=== PATIENT | female | born 1960 | race Caucasian/White ===

== ENCOUNTER 2018-11-21 10:37 | Inpatient (IN) | payer BC ==
[~2018-11-21] VITALS: Ht 175.3 cm; Wt 48.3 kg
[2018-11-21 11:46] LABS: BASOPHILS ABSOLUTE AUTO 0.04 K/mm3 (0.00-0.23); BASOPHILS PERCENT AUTO 0 % (0-2); EOSINOPHILS ABSOLUTE AUTO 0.61 K/mm3 (0.00-0.68); EOSINOPHILS PERCENT AUTO 5 % (0-6); Hematocrit 47.1 % (33.0-51.0); Hemoglobin 15.3 g/dL (11.5-16.0); IMMATURE GRAN ABSOLUTE AUTO 0.02 K/mm3 (0.00-0.10); IMMATURE GRAN PERCENT AUTO 0 % (0-1); LYMPHOCYTES ABSOLUTE AUTO 1.23 K/mm3 (0.84-5.20); LYMPHOCYTES PERCENT AUTO 11 % (21-46); MONOCYTES ABSOLUTE AUTO 0.42 K/mm3 (0.16-1.47); MONOCYTES PERCENT AUTO 4 % (4-13); Mean Corpuscular HGB 30.6 pg (26.0-34.0); Mean Corpuscular HGB Conc 32.5 g/dL (31.5-36.5); Mean Corpuscular Volume 94 fL (80-100); Mean Platelet Volume 9.1 fL (9.1-12.4); NEUTROPHILS ABSOLUTE AUTO 8.94 K/mm3 (1.96-9.15); NEUTROPHILS PERCENT AUTO 79 % (41-73); Platelet Count 374 K/mm3 (150-400); RDW Coefficient Variation 14.7 % (11.7-14.2); RDW Standard Deviation 51.8 fL (35.1-46.3); White Blood Cell Count 11.26 K/mm3 (4.00-11.30)
[2018-11-21 11:52] LABS: Source, Urine Clean Catch
[2018-11-21 11:59] LABS: Appearance, Urine Clear (Clear); Bilirubin, Urine Neg (Neg); Blood, Urine 4+ (Neg); Color, Urine Yellow (P-Yellow); Glucose Qualitative, Urine Neg (Neg); Ketones, Urine Neg (Neg); Leukocyte Esterase, Urine 1+ (Neg); Nitrite, Urine Neg (Neg); Protein, Urine 2+ (Neg); Specific Gravity, Urine 1.015 (1.003-1.022); Urobilinogen, Urine NORM (Normal)
[2018-11-21 12:10] LABS: Alanine Aminotransfer (ALT/SGP 19 U/L (12-78); Alk Phos 88 U/L (50-136); Anion Gap 5 mmol/L (6-16); Aspartate Aminotrans (AST/SGOT 13 U/L (12-37); Bilirubin, Total 0.4 mg/dL (0.1-1.0); Blood Urea Nitrogen 15 mg/dL (8-24); Bun/Creatinine Ratio 20.4 (12.0-20.0); CO2, Blood 29 mmol/L (21-32); Calcium, Blood 10.9 mg/dL (8.5-10.1); Chloride, Blood 104 mmol/L (98-108); Creatinine, Blood 0.74 mg/dL (0.40-1.00); Globulin, Blood 4.1 g/dL (2.2-4.0); Glomerular Filtration Rate >60 (60-); Glucose, Blood 90 mg/dL (70-99); Potassium, Blood 3.6 mmol/L (3.5-5.5); Sodium, Blood 138 mmol/L (136-145); Total Protein, Blood 8.1 g/dL (6.4-8.2)
[2018-11-21 12:25] LABS: Bacteria Mod /hpf; Squamous Epithelial Cells Few /hpf (Few)
--- NOTE | 2018-11-21 14:34 | NUR ---
PT INTO SDS VIA GURNEY FROM ER. History, Chart, Medications and Allergies reviewed before start of procedure.Patient confirms NPO status and agrees with scheduled surgery.SENCOND IV PLACED PER DR. GONZALEZ.
[2018-11-21] MEDS ORDERED: ESCI20 PO (14:42)
[2018-11-21] MEDS ORDERED: BUDESONIDE EC3 MG PO (14:43)
[2018-11-21] MEDS ORDERED: LOSA50 PO (14:44)
[2018-11-22 05:03] LABS: Hematocrit 38.8 % (33.0-51.0); Hemoglobin 12.6 g/dL (11.5-16.0); Mean Corpuscular HGB 30.1 pg (26.0-34.0); Mean Corpuscular HGB Conc 32.5 g/dL (31.5-36.5); Mean Corpuscular Volume 93 fL (80-100); Mean Platelet Volume 8.9 fL (9.1-12.4); Platelet Count 250 K/mm3 (150-400); RDW Coefficient Variation 14.7 % (11.7-14.2); RDW Standard Deviation 50.1 fL (35.1-46.3); Red Blood Cell Count 4.19 M/mm3 (3.80-5.20); White Blood Cell Count 11.23 K/mm3 (4.00-11.30)
[2018-11-22 05:19] LABS: Anion Gap 4 mmol/L (6-16); Blood Urea Nitrogen 17 mg/dL (8-24); Bun/Creatinine Ratio 23.2 (12.0-20.0); CO2, Blood 30 mmol/L (21-32); Calcium, Blood 9.1 mg/dL (8.5-10.1); Chloride, Blood 102 mmol/L (98-108); Creatinine, Blood 0.73 mg/dL (0.40-1.00); Glomerular Filtration Rate >60 (60-); Glucose, Blood 102 mg/dL (70-99); Sodium, Blood 136 mmol/L (136-145)
[2018-11-22 05:26] LABS: BAND PERCENT MAN 13 % (0-8); BASOPHILS ABSOLUTE MAN 0.11 K/mm3 (0.00-0.23); BASOPHILS PERCENT MAN 1 % (0-2); EOSINOPHILS PERCENT MAN 0 % (0-6); LYMPHOCYTES ABSOLUTE MAN 0.22 K/mm3 (0.84-5.20); LYMPHOCYTES PERCENT MAN 2 % (21-46); METAMYELOCYTE ABSOLUTE MAN 0.11 K/mm3 (0.00-0.00); METAMYELOCYTE PERCENT MAN 1 % (0-0); MONOCYTES ABSOLUTE MAN 0.33 K/mm3 (0.16-1.47); MONOCYTES PERCENT MAN 3 % (4-13); NEUTROPHILS ABSOLUTE MAN 10.44 K/mm3 (1.96-9.15); SEG NEUTROPHILS PERCENT MAN 80 % (41-73); TOTAL CELLS COUNTED 100
--- NOTE | 2018-11-22 08:07 | NUR ---
SUMMARY POD #1 FENTANYL CONSULTING NURSE STARTED THIS AM FOR PAIN CONTROL. PT HAS NOT BEEN ABLE SLEEP TO DUE TO PAIN. PT IS NPO. PROTONIX DRIP INFUSING. DRSG'S REMAIN C/D/I. VOIDING WNL. CALL LIGHT IN REACH
--- NOTE | 2018-11-22 15:19 | NUR ---
PT HYPERTENSIVE. CALLED DR GAYTAN AND OBTAINED ORDERS FOR PT'S HOME DOSE OF [place]
--- NOTE | 2018-11-22 17:19 | NUR ---
SUMMARY NO ACUTE CHANGES T/O SHIFT. PT VERY PAINFUL W/MOVEMENT. USING TAX DIRECTOR, STATES DOES HELP MAKE PAIN TOLERABLE. GETS UP INDEPENDENTLY TO RESTROOM. DRESSING TO MIDLINE ABD HAS SCANT AMT BROWNISH DRAINAGE. HYPERTENSIVE. CALLED DR AND OBTAINED ORDERS FOR HOME DOSE OF [place]. ADMINISTERED PER ORDERS. PT PLEASANT AND COOPERATIVE. CALL LIGHT IN REACH.
[2018-11-22] MEDS ORDERED: NIFE30ER PO (18:11)
[2018-11-22] MEDS ORDERED: Alendronate Sod10 MG PO (18:12)
[2018-11-23 05:13] LABS: BASOPHILS ABSOLUTE AUTO 0.02 K/mm3 (0.00-0.23); BASOPHILS PERCENT AUTO 0 % (0-2); EOSINOPHILS ABSOLUTE AUTO 0.19 K/mm3 (0.00-0.68); EOSINOPHILS PERCENT AUTO 2 % (0-6); Hematocrit 36.9 % (33.0-51.0); Hemoglobin 11.9 g/dL (11.5-16.0); IMMATURE GRAN ABSOLUTE AUTO 0.05 K/mm3 (0.00-0.10); IMMATURE GRAN PERCENT AUTO 0 % (0-1); LYMPHOCYTES ABSOLUTE AUTO 0.71 K/mm3 (0.84-5.20); LYMPHOCYTES PERCENT AUTO 6 % (21-46); MONOCYTES ABSOLUTE AUTO 0.53 K/mm3 (0.16-1.47); MONOCYTES PERCENT AUTO 5 % (4-13); Mean Corpuscular HGB 30.6 pg (26.0-34.0); Mean Corpuscular HGB Conc 32.2 g/dL (31.5-36.5); Mean Corpuscular Volume 95 fL (80-100); Mean Platelet Volume 9.1 fL (9.1-12.4); NEUTROPHILS ABSOLUTE AUTO 10.13 K/mm3 (1.96-9.15); NEUTROPHILS PERCENT AUTO 87 % (41-73); Platelet Count 261 K/mm3 (150-400); RDW Coefficient Variation 14.9 % (11.7-14.2); RDW Standard Deviation 52.7 fL (35.1-46.3); Red Blood Cell Count 3.89 M/mm3 (3.80-5.20); White Blood Cell Count 11.63 K/mm3 (4.00-11.30)
[2018-11-23 05:38] LABS: Anion Gap 5 mmol/L (6-16); Blood Urea Nitrogen 14 mg/dL (8-24); CO2, Blood 28 mmol/L (21-32); Calcium, Blood 8.6 mg/dL (8.5-10.1); Chloride, Blood 103 mmol/L (98-108); Creatinine, Blood 0.61 mg/dL (0.40-1.00); Glomerular Filtration Rate >60 (60-); Glucose, Blood 85 mg/dL (70-99); Potassium, Blood 3.8 mmol/L (3.5-5.5); Sodium, Blood 136 mmol/L (136-145)
--- NOTE | 2018-11-23 06:51 | NUR ---
LYING IN SEMI FOWLERS WITH EYES CLOSED AND TV ON. HAS HAD A GOOD NIGHT, NO REQUESTS FOR PAIN MEDS THIS SHIFT. RESTED WITH EASE, HAS BEEN PLEASANT, AND COOPERATIVE WITH ALL COMMANDS AND REQUESTS. DENIES FURTHER NEEDS AT THIS TIME. SAFETY MEAURES IN PLACE. WILL GIVE HAND OFF FOR ONCOMING SHIFT USING SBAR.
--- NOTE | 2018-11-23 12:18 | NUR ---
FENTANYL CAKE WRAPPER OBTAINED ORDER TO INCREASE DEMAND DOSE OF CAKE WRAPPER TO 12 MCG Q 10 MIN PRN. PT REPORT PAIN IMPROVED AND DECLINED THE INCREASE. CAKE WRAPPER RUNNING AT 10 MCG PER MIN DEMAND DOSE.
--- NOTE | 2018-11-23 13:07 | NUR ---
FENTANYL POULTRY HANGER INCREASED POULTRY HANGER TO 12MCG DEMAND DOSE PER ORDERS PER PT REQUEST.
--- NOTE | 2018-11-23 18:30 | NUR ---
SHIFT SUMMARY PT HAD UGI THIS AM. ABD FIRM AND DISTENDED WITH SLIGHT NAUSEA AFTER PROCEDURE. PT REFUSED NG TUBE AT THIS TIME. AMBULATED IN FREED AND UP TO BATHROOM WITH NO DIFFICULTY. USING ANALYTICAL RESEARCH PROGRAM MANAGER FOR PAIN CONTROL, PLEASANT AND COOPERATIVE.
--- NOTE | 2018-11-24 06:56 | NUR ---
SUMMARY PT ABD MODERATELY DISTENDE WITH HYPO BTS AND NAUSEA/ SPITTING UP OF BILE. PT INITIALLY REFUSED NG BUT THEN ALLOWED NG PLACEMENT. NG WENT DOWN SMOOTHLY HOWEVER, PT ONLY ALLOWED 100 ML REMOVED BEFORE DEMAND OF NG REMOVAL STATING SHE JUST COULD NOT TOLERATE IT.UNIT SUPERVISER INÉS WHO PLACED NG DISCUSSED FULLY WITH PT BENEFITS OF LEAVING TUBE IN PLACE FOR DECOMPRESSION. PT STILL DEMANDED REMOVAL. NG WAS IMMEDIATELY REMOVED AND PT CONT SPITTING UP BILE. OCC PT EMESIS ENOUGH FOR MEASUREMENT. OTHERWISE SPITTING INTO TISSUE. ENC USE OF DOPING SUPERVISOR FOR DISCOMFORT.ALSO USING ZOFRAN FOR NAUSEA. PT TACHYCARDIC AND SIGMIFICANTLY HYPERTENSIVE. WE NOTIFIED DR RADHA GAYLE WHO GAVE ORDERS FOR ORN SL PROCARDIA WHICH WAS STARTED. HAVE HAD 2 BPS THAT WERE ACTUALLY IMPROVED TONIGHT. LAST HEART RATE WAS 118. WILL ASK DAY RN TO FOLLOW UP AND POSSIBLY REQUEST CX WITH MED/HOSPITALIST FOR CONTROL OF HTN AND TACYCARDIA. PT WITH ANOTHER 150 ML BILE EMESIS THIS AM. PT CONT TO REFUSE NG FURTHER. I AGAIN DISCUSSED BENEFITS WITH PT AND POSSIBLE ILEUS.PT REPORTS WHE DOES NOT INTEND TO CHANGE HER MIND. SEE UGI 11/23.
[2018-11-24 12:32] LABS: BASOPHILS ABSOLUTE AUTO 0.02 K/mm3 (0.00-0.23); BASOPHILS PERCENT AUTO 0 % (0-2); EOSINOPHILS ABSOLUTE AUTO 0.15 K/mm3 (0.00-0.68); EOSINOPHILS PERCENT AUTO 1 % (0-6); Hematocrit 36.9 % (33.0-51.0); IMMATURE GRAN ABSOLUTE AUTO 0.05 K/mm3 (0.00-0.10); IMMATURE GRAN PERCENT AUTO 0 % (0-1); LYMPHOCYTES ABSOLUTE AUTO 0.77 K/mm3 (0.84-5.20); LYMPHOCYTES PERCENT AUTO 6 % (21-46); MONOCYTES ABSOLUTE AUTO 0.47 K/mm3 (0.16-1.47); MONOCYTES PERCENT AUTO 4 % (4-13); Mean Corpuscular HGB 30.1 pg (26.0-34.0); Mean Corpuscular HGB Conc 32.5 g/dL (31.5-36.5); Mean Corpuscular Volume 93 fL (80-100); Mean Platelet Volume 8.9 fL (9.1-12.4); NEUTROPHILS ABSOLUTE AUTO 10.84 K/mm3 (1.96-9.15); NEUTROPHILS PERCENT AUTO 88 % (41-73); Platelet Count 308 K/mm3 (150-400); RDW Coefficient Variation 14.6 % (11.7-14.2); RDW Standard Deviation 49.5 fL (35.1-46.3); Red Blood Cell Count 3.99 M/mm3 (3.80-5.20)
[2018-11-24 12:49] LABS: Anion Gap 8 mmol/L (6-16); Blood Urea Nitrogen 17 mg/dL (8-24); Bun/Creatinine Ratio 32.5 (12.0-20.0); CO2, Blood 27 mmol/L (21-32); Calcium, Blood 8.7 mg/dL (8.5-10.1); Chloride, Blood 102 mmol/L (98-108); Creatinine, Blood 0.52 mg/dL (0.40-1.00); Glomerular Filtration Rate >60 (60-); Glucose, Blood 85 mg/dL (70-99); Potassium, Blood 3.3 mmol/L (3.5-5.5); Sodium, Blood 137 mmol/L (136-145)
--- NOTE | 2018-11-24 18:42 | NUR ---
SHIFT SUMMARY PATIENT UP TO AMBULATE IN FREED SEVERAL TIMES THIS SHIFT. HAS HAD 3 BM'S THIS SHIFT. DENIES NAUSEA SINCE THIS AM. CALL TO DR GARCIA TO ADVANCE TO CL DIET BASED ON DR GAYTAN'S NOTE TODAY. BP IMPROVED. NO C/O AT THIS TIME.
[2018-11-25 04:49] LABS: BASOPHILS ABSOLUTE AUTO 0.02 K/mm3 (0.00-0.23); BASOPHILS PERCENT AUTO 0 % (0-2); EOSINOPHILS ABSOLUTE AUTO 0.64 K/mm3 (0.00-0.68); EOSINOPHILS PERCENT AUTO 9 % (0-6); Hematocrit 36.1 % (33.0-51.0); Hemoglobin 11.8 g/dL (11.5-16.0); IMMATURE GRAN ABSOLUTE AUTO 0.03 K/mm3 (0.00-0.10); IMMATURE GRAN PERCENT AUTO 0 % (0-1); LYMPHOCYTES ABSOLUTE AUTO 0.77 K/mm3 (0.84-5.20); LYMPHOCYTES PERCENT AUTO 11 % (21-46); MONOCYTES ABSOLUTE AUTO 0.66 K/mm3 (0.16-1.47); MONOCYTES PERCENT AUTO 9 % (4-13); Mean Corpuscular HGB 30.2 pg (26.0-34.0); Mean Corpuscular HGB Conc 32.7 g/dL (31.5-36.5); Mean Corpuscular Volume 92 fL (80-100); Mean Platelet Volume 8.9 fL (9.1-12.4); NEUTROPHILS ABSOLUTE AUTO 5.19 K/mm3 (1.96-9.15); NEUTROPHILS PERCENT AUTO 71 % (41-73); Platelet Count 316 K/mm3 (150-400); RDW Coefficient Variation 14.6 % (11.7-14.2); RDW Standard Deviation 49.2 fL (35.1-46.3); Red Blood Cell Count 3.91 M/mm3 (3.80-5.20); White Blood Cell Count 7.31 K/mm3 (4.00-11.30)
[2018-11-25 05:17] LABS: Anion Gap 4 mmol/L (6-16); Blood Urea Nitrogen 10 mg/dL (8-24); CO2, Blood 30 mmol/L (21-32); Calcium, Blood 8.4 mg/dL (8.5-10.1); Chloride, Blood 104 mmol/L (98-108); Glomerular Filtration Rate >60 (60-); Glucose, Blood 130 mg/dL (70-99); Potassium, Blood 3.4 mmol/L (3.5-5.5); Sodium, Blood 138 mmol/L (136-145)
--- NOTE | 2018-11-25 05:58 | NUR ---
SUMMARY: NO ACUTE CHANGE TONIGHT. HR CONTINUES TO BE ELEVATED, ST PER TELE AND PT ASYMPTOMATIC. BP ELEVATED THIS AM WELL. Q6 HR LOPRESSER ADMINISTERED. AND HYDRALAZINE. WILL RECHECK BEFORE SHIFT END. PT HAS DENIED DIZZINESS, HAS BEEN A/O, TONIGHT. SUPERVISOR CARDING MANAGING PAIN WELL, SURGICAL SITES WNL. PT NAUSEATED X1, MEDICATED. OTHERWISE PT ABLE TO SLEEP WELL. NO EMESIS ON ADVANCING TO CLEAR LIQ. INDEPENDENTL IN ROOM . WILL CTM AND REPORT TO DAY RN
--- NOTE | 2018-11-25 10:23 | NUR ---
rounding: in to see patient. advance to fl diet. pt had bm this am. but is still nauseated at times. med change to prozac for depression per patient request by doctor.
--- NOTE | 2018-11-25 17:09 | NUR ---
PT HAS BEEN STABLE THIS SHIFT. PT INDEP TO BATHROOM AND HALLWAYS. PT HAS POOR ORAL INTAKE, NO NAUSEA SINCE AM. ADVANCED TO MA FOR DINNER. PT VOIDING WELL. HAVING SMALL UNFORMED GREEN STOOLS. CONT IV FLUIDS ORDERED. PAIN MANAGED WITH FENTANYL MATH TEACHER. PT REFUSED SHOWER THIS AM. STERI STRIPS TO ABDOMEN CLEAN, NO S/S INFECTION. PT HYPERTENSIVE THIS AM, IMPROVED AFTER SCHEDULED AND PRN MEDS. REMAINS TACHY ON TELE. PAS TO BLE. USES CALL LIGHT APPROPRIATELY NEEDED.
--- NOTE | 2018-11-26 05:07 | NUR ---
SUMMARY: NO ACUTE CHANGE TONIGHT. STILL TACHYCARDIC AT TIMES OTHERWISE VSS, A/O. NO N/V. TOLERATING FULL LIQUID DIET. CONTINUES ON GREEN COFFEE BLENDER FOR PAIN MANAGEMENT. HAVING SMALL BM'S. INDEPENDENT IN ROOM, NO SAFETY CONCERNS AT THIS TIME
--- NOTE | 2018-11-26 17:56 | NUR ---
SHIFT SUMMARY. PT BP AND HR HAVE REMAINED ELEVATED DURING SHIFT. PRN NIFEDIPINE GIVEN X2 THROUGHOUT SHIFT. SINUS TACH 130 PER MAINTENANCE SUPERVISOR AT 1800. PT HAS HAD 650ML EMESIS, GREEN IN COLOR DURING SHIFT, OFTEN AFTER AMBULATION. MEDICATED FOR NAUSEA X2 DURING SHIFT. MEDICATED FOR PAIN X1 DURING SHIFT. PT ALERT AND ORIENTED, POSITIVE AFFECT THROUGHOUT SHIFT. LR INFUSING 125/HR. AMBULATES TO RESTROOM, PASSING GAS HAVING BM. STARTED ON REGULAR DIET AND PO PAIN MEDICATION.
--- NOTE | 2018-11-27 06:20 | NUR ---
SUMMARY: PT HAD A ROUGH NIGHT. NAUSEA KEPT PT AWAKE, MEDICATED X3. ABOUT 100 MEASURED EMESIS TOTAL TONIGHT WITH 3 SMALL UNMEASURED. PT TAKING IN SIPS OF WATER ONLY. HAS DENIED PAIN, STILL HAVING ASYMPTOMATIC HTN AND TACHYCARDIA AT TIMES. IV LOPRESSER GIVEN Q6. SURGICAL SITES WNL, PT IS A/O, NO ACUTE SAFETY CONCERNS.
--- NOTE | 2018-11-27 17:59 | NUR ---
SHIFT SUMMARY PT DOING WELL. A&OX4. ABD DRESSING C/D/I. INTERMITTENT N/V THIS MORNING, CURRENTLY MANAGED BY IV ANTIEMETICS. TOLERATING SMALL AMOUNTS OF REGULAR DIET, REPORTS NORMAL VOIDING WITH BM. IND IN ROOM WITH PAIN WELL CONTROLLED WITH MINIMAL INTERVENTIONS.
[2018-11-28 04:54] LABS: BASOPHILS ABSOLUTE AUTO 0.03 K/mm3 (0.00-0.23); BASOPHILS PERCENT AUTO 1 % (0-2); EOSINOPHILS ABSOLUTE AUTO 0.76 K/mm3 (0.00-0.68); EOSINOPHILS PERCENT AUTO 12 % (0-6); Hematocrit 37.7 % (33.0-51.0); Hemoglobin 12.3 g/dL (11.5-16.0); IMMATURE GRAN ABSOLUTE AUTO 0.08 K/mm3 (0.00-0.10); IMMATURE GRAN PERCENT AUTO 1 % (0-1); LYMPHOCYTES ABSOLUTE AUTO 1.24 K/mm3 (0.84-5.20); LYMPHOCYTES PERCENT AUTO 19 % (21-46); MONOCYTES ABSOLUTE AUTO 0.68 K/mm3 (0.16-1.47); MONOCYTES PERCENT AUTO 10 % (4-13); Mean Corpuscular HGB 29.6 pg (26.0-34.0); Mean Corpuscular HGB Conc 32.6 g/dL (31.5-36.5); Mean Corpuscular Volume 91 fL (80-100); Mean Platelet Volume 8.7 fL (9.1-12.4); NEUTROPHILS ABSOLUTE AUTO 3.74 K/mm3 (1.96-9.15); NEUTROPHILS PERCENT AUTO 57 % (41-73); Platelet Count 402 K/mm3 (150-400); RDW Coefficient Variation 14.6 % (11.7-14.2); RDW Standard Deviation 48.9 fL (35.1-46.3); Red Blood Cell Count 4.15 M/mm3 (3.80-5.20); White Blood Cell Count 6.53 K/mm3 (4.00-11.30)
[2018-11-28 05:12] LABS: Anion Gap 6 mmol/L (6-16); Blood Urea Nitrogen 10 mg/dL (8-24); Bun/Creatinine Ratio 17.9 (12.0-20.0); CO2, Blood 23 mmol/L (21-32); Calcium, Blood 9.5 mg/dL (8.5-10.1); Chloride, Blood 102 mmol/L (98-108); Creatinine, Blood 0.56 mg/dL (0.40-1.00); Glomerular Filtration Rate >60 (60-); Glucose, Blood 102 mg/dL (70-99); Potassium, Blood 4.2 mmol/L (3.5-5.5); Sodium, Blood 131 mmol/L (136-145)
--- NOTE | 2018-11-28 05:50 | NUR ---
POD 7 S/P EXP LAP/ULCER REPAIR. PT HAD NO ACUTE CHANGES T/O NIGHT, HR SINUS TACH LOW 100'S, PT DENIED CP/PRESSURE. BP REMAINS ELEVATED, BELOW PARAMETERS FOR PRN BP MEDS. PT DENIED N/V/PAIN, PT REP 1 LIQ BM THIS SHIFT, IS VOIDING URINE W/O DIFFICULTY. IVF CONT PER ORDERS. PT EAGER TO D/C HOME, IS USING CALL LIGHT FOR ASSISTANCE, WILL CONT TO MONITOR UNTIL REP GIVEN TO ONCOMING RN.
--- NOTE | 2018-11-28 08:00 | NUR ---
REFUSAL OF TELE PT REFUSES TO WEAR TELEMETRY ANYMORE DUE TO STATING SHE WAS BEING DISCHARGED.
--- NOTE | 2018-11-28 10:52 | NUR ---
PO MEDS VERBAL ORDER FROM DR GAYTAN THAT HE WANTS PO PROTONIX GIVEN ALTHOUGH SHE WAS GIVEN IV PROTONIX THIS AM.
[2018-11-28] MEDS ORDERED: METO25ER PO (11:46)
[2018-11-28] MEDS ORDERED: PANT40 PO (11:46)
--- NOTE | 2018-11-28 12:47 | NUR ---
DISCHARGE LORY PT D/C HOME WITH SPOUSE AT 1245 TODAY. DISCHARGE INSTRUCTIONS AND SCRIPTS PROVIDED, PATIENT AND SPOUSE DECLINED ANY FURTHER QUESTIONS OR CONCERNS AT THIS TIME. SHE IS ABLE TO AMBULATE INDEPENDENTLY WITH PAIN WELL CONTROLLED, AND TOLERATES DIET. HR AND BP DECREASED AFER NEW BP MED STARTED. PT DENIES DIZZINESS OR LIGHTHEADEDNESS. D/C FOLLOW-UP APPTS MADE WITH SURGEON AND PCP. VERBALIZED IMPORTANCE OF MAINTAINING FOLLOW-UP APPTS.
== END 2018-11-28 12:49 | disposition home or self-care (01) | DRG 327 ==
LOC: ER 10:37 → SURS 14:00
PROVIDERS: Physician Assistant; ADMIT Surgery
PROC: 0WJP4ZZ Inspection of Gastrointestinal Tract, Percutaneous Endoscopic Approach (ICD-10-PCS; 2018-11-21)
PROC: 0DU707Z Supplement Stomach, Pylorus with Autologous Tissue Substitute, Open Approach (ICD-10-PCS; principal; 2018-11-21 14:30)
DX: K25.5 Chronic or unspecified gastric ulcer with perforation (principal); K56.7 Ileus, unspecified; K51.90 Ulcerative colitis, unspecified, without complications; R64 Cachexia; Z68.1 Body mass index [BMI] 19.9 or less, adult; I10 Essential (primary) hypertension; J44.9 Chronic obstructive pulmonary disease, unspecified; F32.9 Major depressive disorder, single episode, unspecified; F17.210 Nicotine dependence, cigarettes, uncomplicated; Z53.31 Laparoscopic surgical procedure converted to open procedure; Z79.899 Other long term (current) drug therapy; Z90.49 Acquired absence of other specified parts of digestive tract; Z87.11 Personal history of peptic ulcer disease; Z79.52 Long term (current) use of systemic steroids
CPT/HCPCS: 36415; 74177; 74240; 80048; 80053; 81001; 83690; 85025; 87086; 96361; 96374-59; 96375; 96376; 99285-25; A9270-GY; C9113; J0360; J1100; J1170; J1650; J2250; J2370; J2405; J2543; J2704; J2710; J2765; J3010; J7030; J7120; Q9967

== ENCOUNTER 2019-03-13 06:38 | Day surgery (SDC) | payer BC ==
[~2019-03-13] VITALS: Ht 175.3 cm; Wt 46.5 kg
[~2019-03-13 06:38] MED LIST: Alendronate Sod10 MG PO; BUDESONIDE EC3 MG PO; ESCI20 PO; LOSA50 PO; METO25ER PO; NIFE30ER PO; PANT40 PO
[2019-03-13] MEDS ORDERED: Prozac20 MG PO (07:19)
[2019-03-13] MEDS ORDERED: SUMA6I IM (07:20)
== END 2019-03-13 08:35 | disposition home or self-care (01) ==
LOC: ORSCSDS 06:38
PROVIDERS: Internal Medicine Gastroenterology
PROC: 0DB68ZX Excision of Stomach, Via Natural or Artificial Opening Endoscopic, Diagnostic (ICD-10-PCS; principal; 2019-03-13 08:00)
DX: K26.9 Duodenal ulcer, unspecified as acute or chronic, without hemorrhage or perforation (principal); K29.80 Duodenitis without bleeding; I10 Essential (primary) hypertension; J44.9 Chronic obstructive pulmonary disease, unspecified; F17.210 Nicotine dependence, cigarettes, uncomplicated; Z79.899 Other long term (current) drug therapy
CPT/HCPCS: 88305; 88342; J2405; J2704; J7120

== ENCOUNTER → 2019-07-12 | Outpatient (CLI) | payer BC ==
[~2019-07-12] MED LIST changes: +Prozac20 MG PO; +SUMA6I IM
[2019-07-12 13:59] LABS: Adenovirus F 40/41 Not Detected (NOT DETECT); Astrovirus Not Detected (NOT DETECT); Campylobacter Sp Not Detected (NOT DETECT); Cryptosporidium Not Detected (NOT DETECT); Cyclospora Cayetanensis Not Detected (NOT DETECT); E. Coli O157 Not Detected (NOT DETECT); Entamoeba Histolytica Not Detected (NOT DETECT); Enteroaggregative E. coli-EAEC Not Detected (NOT DETECT); Enteropathogenic E. coli-EPEC Not Detected (NOT DETECT); Enterotoxigenic E. coli-ETEC Not Detected (NOT DETECT); Giardia Lamblia Not Detected (NOT DETECT); Norovirus GI/GII Not Detected (NOT DETECT); Plesiomonas Shigelloides Not Detected (NOT DETECT); Rotavirus A Not Detected (NOT DETECT); Salmonella Sp Not Detected (NOT DETECT); Sapovirus Not Detected (NOT DETECT); Shiga Toxin-prod E. coli-STEC Not Detected (NOT DETECT); Shigella/Enteroin E. coli-EIEC Not Detected (NOT DETECT); Vibrio Cholerae Not Detected (NOT DETECT); Vibrio Sp Not Detected (NOT DETECT); Yersinia Enterocolitica Not Detected (NOT DETECT)
[2019-07-17 10:08] LABS: FATS, NEUTRAL Normal (.); FATS, TOTAL Normal (.)
== END | disposition home or self-care (01) ==
LOC: LAB SHORT 09:30 → LAB 09:30
PROVIDERS: Internal Medicine Gastroenterology
DX: R19.7 Diarrhea, unspecified (principal); R63.4 Abnormal weight loss
CPT/HCPCS: 0097U; 82705; 83993; 84302; 84999

== ENCOUNTER 2021-03-01 09:32 | Emergency (ER) | payer BC ==
[~2021-03-01] VITALS: Ht 175.3 cm; Wt 54.4 kg
[2021-03-01] MEDS ORDERED: PROM25 PO (11:03)
[2021-03-01] MEDS ORDERED: HYDR1TAB94 PO (11:03)
== END 2021-03-01 11:18 | disposition home or self-care (01) ==
LOC: ER 09:32
DX: K08.89 Other specified disorders of teeth and supporting structures (principal); K13.79 Other lesions of oral mucosa; F17.200 Nicotine dependence, unspecified, uncomplicated
CPT/HCPCS: 99282; A9270

== ENCOUNTER 2021-06-23 14:28 | Inpatient (IN) | payer BC ==
[~2021-06-23] VITALS: Ht 175.3 cm; Wt 54.2 kg
[~2021-06-23 14:28] MED LIST changes: +HYDR1TAB94 PO; +PROM25 PO
[2021-06-23 16:19] LABS: Source, Urine Catheter
[2021-06-23 16:24] LABS: BASOPHILS ABSOLUTE AUTO 0.04 K/mm3 (0.00-0.23); BASOPHILS PERCENT AUTO 0 % (0-2); EOSINOPHILS ABSOLUTE AUTO 0.11 K/mm3 (0.00-0.68); EOSINOPHILS PERCENT AUTO 1 % (0-6); Hemoglobin 10.6 g/dL (11.5-16.0); IMMATURE GRAN ABSOLUTE AUTO 0.04 K/mm3 (0.00-0.10); IMMATURE GRAN PERCENT AUTO 0 % (0-1); LYMPHOCYTES ABSOLUTE AUTO 0.88 K/mm3 (0.84-5.20); LYMPHOCYTES PERCENT AUTO 9 % (21-46); MONOCYTES ABSOLUTE AUTO 0.23 K/mm3 (0.16-1.47); MONOCYTES PERCENT AUTO 2 % (4-13); Mean Corpuscular HGB 30.2 pg (26.0-34.0); Mean Corpuscular HGB Conc 32.1 g/dL (31.5-36.5); Mean Corpuscular Volume 94 fL (80-100); Mean Platelet Volume 9.6 fL (9.1-12.4); NEUTROPHILS ABSOLUTE AUTO 8.58 K/mm3 (1.96-9.15); NEUTROPHILS PERCENT AUTO 87 % (41-73); Platelet Count 302 K/mm3 (150-400); RDW Coefficient Variation 14.9 % (11.7-14.2); RDW Standard Deviation 51.8 fL (35.1-46.3); Red Blood Cell Count 3.51 M/mm3 (3.80-5.20); White Blood Cell Count 9.88 K/mm3 (4.00-11.30)
[2021-06-23 16:26] LABS: Bilirubin, Urine Neg (Neg); Blood, Urine 4+ (Neg); Color, Urine Yellow (P-Yellow); Glucose Qualitative, Urine Neg (Neg); Ketones, Urine 2+ (Neg); Leukocyte Esterase, Urine 2+ (Neg); Nitrite, Urine Pos (Neg); Protein, Urine 2+ (Neg); Urobilinogen, Urine NORM (Normal)
[2021-06-23 16:33] LABS: Appearance, Urine Hazy (Clear)
[2021-06-23 16:38] LABS: Alanine Aminotransfer (ALT/SGP 17 U/L (12-78); Albumin, Blood 3.3 g/dL (3.4-5.0); Albumin/Globulin Ratio 0.9 (0.8-1.8); Alk Phos 70 U/L (50-136); Anion Gap 7 mmol/L (6-16); Aspartate Aminotrans (AST/SGOT 12 U/L (12-37); Bilirubin, Total 0.3 mg/dL (0.1-1.0); Blood Urea Nitrogen 17 mg/dL (8-24); Bun/Creatinine Ratio 25.8 (12.0-20.0); CO2, Blood 23 mmol/L (21-32); Chloride, Blood 110 mmol/L (98-108); Creatinine, Blood 0.66 mg/dL (0.40-1.00); Globulin, Blood 3.6 g/dL (2.2-4.0); Glomerular Filtration Rate >60 (60-); Glucose, Blood 110 mg/dL (70-99); Potassium, Blood 3.7 mmol/L (3.5-5.5); Sodium, Blood 140 mmol/L (136-145); Total Protein, Blood 6.9 g/dL (6.4-8.2); Troponin I 0.027 ng/mL (0.000-0.040)
[2021-06-23 16:39] LABS: Bacteria Many /hpf; Squamous Epithelial Cells Few /hpf (Few)
[2021-06-23 16:40] LABS: Amorphous Light (0-Heavy)
[2021-06-23 16:41] LABS: Thyroid Stimulating Hormone 0.928 uIU/mL (0.360-4.800)
[2021-06-23 16:46] LABS: U Amphetamine Screen Not Detected; U Barbituate Screen Not Detected; U Benzodiazapine Screen DETECTED; U Buprenorphine Screen Not Detected; U Cannabinoids Screen DETECTED; U Cocaine Screen Not Detected; U Methadone Screen Not Detected; U Methamphetamine Screen Not Detected; U Opiates Screen Not Detected; U Oxycodone Screen Not Detected; U Phencyclidine Screen Not Detected; U Propoxyphene Screen Not Detected
[2021-06-23 19:41] LABS: International Normalized Ratio 1.01; Prothrombin Time Results 10.6 Sec (9.7-11.5)
[2021-06-23 19:48] LABS: Percent Saturation 13.8 % (15.0-50.0)
[2021-06-24 03:14] LABS: CHOL/HDL RATIO 2.8; Cholesterol 173 mg/dL (50-200); HDL Cholesterol 61 mg/dL (>39); LDL/HDL RATIO 1.6; Low Density Lipoprotein Chol 99 mg/dL (0-110); Triglycerides 64 mg/dL (30-160); Very Low Density Lipoprot Chol 12 mg/dL (6-32)
--- NOTE | 2021-06-24 05:23 | NUR ---
SHEARER HELPER SUMMARY PT IS AXO X4. PT HAS DENIED ANY CP, SOB OR NAUSEA THIS SHIFT. HEPARIN GTT HELD UNTIL 0330 PER PHARMACY SINCE XARELTO WAS GIVEN IN THE ER. TROPONIN UP THIS AM AND PROVIDER NOTIFIED W NO CHANGE TO TX. BP WNL AND STABLE THIS SHIFT. O2 SATS >92% ON RM AIR. PT AFEBRILE THIS SHIFT. TELE SHOWING SR IN THE 90'S THIS SHIFT. WILL REPORT TO ONCOMING RN.
--- NOTE | 2021-06-24 10:54 | NUR ---
Echocardiogram completed.
[2021-06-24] MEDS ORDERED: BUDESONIDE EC3 M1 PO (14:34)
[2021-06-24] MEDS ORDERED: FAMO20 PO (14:34)
[2021-06-24] MEDS ORDERED: METO25ER (14:35)
[2021-06-24] MEDS ORDERED: AMLO5 PO (14:36)
[2021-06-24] MEDS ORDERED: LOSA50 PO (14:36)
--- NOTE | 2021-06-24 18:09 | NUR ---
SHIFT SUMMARY; ASSUMED CARE AT 0700, A/A/OX4, INDEPENDANT IN ROOM. HEPARIN INFUSING WHEN ASSUMING CARE. STRESS TEST AND ECHO COMPLETE TODAY. VERBAL ORDER FROM DR. PARSONS TO DC HEPARIN. DENIES CHEST PAIN OR SOB. SR DURING SHIFT, VSS, WILL CONTININUE TO MONITOR UNTIL CHANGE OF SHIFT.
[2021-06-24] MEDS ORDERED: METO25 PO (18:26)
[2021-06-24] MEDS ORDERED: ATOR40TA PO (18:26)
[2021-06-24] MEDS ORDERED: CEFP200 PO (18:27)
[2021-06-24] MEDS ORDERED: CLOP75 PO (18:27)
[2021-06-24] MEDS ORDERED: XARELTO20 MG PO (18:28)
--- NOTE | 2021-06-24 19:33 | NUR ---
CARE ASSUMPTION PT LYING IN BED AWAITING DISCHARGE WHEN RETURNS TO PICK HER UP. PT DENIES ANY PAIN OR NAUSEA NOR ANY OTHER NEED AT THIS TIME.
--- NOTE | 2021-06-24 20:00 | NUR ---
PT DISCHARGED HOME WITH AND ALL BELONGINGS. DISCHARGE EDUCATION, MEDICATION LIST AND APPOINTMENTS REVIEWED, PT AND HER STATE UNDERSTANDING AND HAVE NO QUESTIONS OR CONCERNS AT THIS TIME. RXs SENT TO PHARMACY BY PREVIOUS SHIFT PER PT REQUEST. IV REMOVED, WDL. NO FURTHER DISCHARGE NEEDS IDENTIFIED.
== END 2021-06-24 20:03 | disposition home or self-care (01) | DRG 281 ==
LOC: ER 14:28 → PCU 14:29
PROVIDERS: Emergency Medicine; ADMIT Internal Medicine
DX: I48.0 Paroxysmal atrial fibrillation (principal); I21.A1 Myocardial infarction type 2; N39.0 Urinary tract infection, site not specified; I10 Essential (primary) hypertension; J44.9 Chronic obstructive pulmonary disease, unspecified; F32.A Depression, unspecified; G43.909 Migraine, unspecified, not intractable, without status migrainosus; D63.8 Anemia in other chronic diseases classified elsewhere; F17.210 Nicotine dependence, cigarettes, uncomplicated; E78.5 Hyperlipidemia, unspecified; Z90.49 Acquired absence of other specified parts of digestive tract; Z79.899 Other long term (current) drug therapy; Z87.11 Personal history of peptic ulcer disease; Z98.890 Other specified postprocedural states; Z71.6 Tobacco abuse counseling
CPT/HCPCS: 36415; 71045; 78452; 80053; 80061; 81001; 82728; 83540; 83550; 84443; 84484; 85025; 85610; 85730; 87077; 87086; 87186; 90686; 93005; 93010; 93017; 93306; 96365; 96372; 99285-25; A9270; A9500; G0378; J0696; J0706; J1644; J2785; J7030